=== PATIENT | male | born 1955 | race Caucasian/White ===

== ENCOUNTER → 2022-05-23 10:46 | Outpatient (CLI) | payer MEDICARE, SELFPAY ==
--- NOTE | ~2022-05-23 | US_ITS ---
US right upper quadrant INDICATION: Hepatitis PROCEDURE: Realtime right upper abdominal ultrasound. COMPARISON: No prior studies for comparison. FINDINGS: The pancreas is normal without focal mass or pancreatic ductal dilation. Liver echotexture is increased, consistent with fatty infiltration. There is normal directional flow in the portal ve in. The gallbladder is normal without stones, gallbladder wall thickening or pericholecystic fluid. Comm on bile duct measures 4.9 mm. No sonographic Bolanos's sign. IMPRESSION: 1: Hepatic steatosis. Reviewed, dictated and finalized at location A. IMPRESSION: 1: Hepatic steatosis.
== END ==
PROVIDERS: PCP Internal Medicine; Visit Provider Internal Medicine
DX: K70.10 Alcoholic hepatitis without ascites (principal); K76.0 Fatty (change of) liver, not elsewhere classified
CPT/HCPCS: 76705

== ENCOUNTER → 2022-12-21 10:11 | Outpatient (CLI) | payer MEDICARE, SELFPAY ==
--- NOTE | ~2022-12-21 | US_ITS ---
US right upper quadrant INDICATION: Alcoholic hepatitis PROCEDURE: Realtime right upper abdominal ultrasound. COMPARISON: No prior studies for comparison. FINDINGS: The pancreas is normal without focal mass or pancreatic ductal dilation. Liver echotexture is increased, consistent with fatty infiltration. There is normal directional flow in the portal ve in. The gallbladder is normal without stones, gallbladder wall thickening or pericholecystic fluid. Comm on bile duct measures 3 mm. No sonographic Bolanos's sign. IMPRESSION: 1: Fatty infiltration of the liver. Reviewed, dictated and finalized at location L. ISTS
== END ==
PROVIDERS: PCP Surgery; Visit Provider Internal Medicine
DX: K70.10 Alcoholic hepatitis without ascites (principal); K76.0 Fatty (change of) liver, not elsewhere classified
CPT/HCPCS: 76705

== ENCOUNTER → 2023-06-13 10:10 | Outpatient (CLI) | payer MEDICARE, SELFPAY ==
--- NOTE | ~2023-06-13 | US_ITS ---
EXAMINATION: US right upper quadrant DATE: 06/13/2023 10:25 INDICATION: Alcoholic hepatitis without ascites. TECHNIQUE: Multiple grayscale and Doppler ultrasound images of the abdomen were obtained. COMPARISON: Ultrasound 12/21/2022 FINDINGS: Abdominal aorta is normal in caliber. The visualized portions of the head and body of the p ancreas are normal. There is diffuse hepatic steatosis. No liver surface nodularity. There is normal flow in main portal vein. The gallbladder is normal in size. No gallstones or gallbladder wall thicke ananth. There is no sonographic Bolanos sign. The common duct is normal and measures 4 mm. IMPRESSION: 1. Diffuse hepatic steatosis. Reviewed, dictated and finalized at location A.
== END ==
PROVIDERS: PCP Internal Medicine; Visit Provider Internal Medicine
DX: K70.10 Alcoholic hepatitis without ascites (principal)
CPT/HCPCS: 76705

== ENCOUNTER → 2023-12-03 08:33 | Outpatient (CLI) | payer MEDICARE, SELFPAY ==
--- NOTE | ~2023-12-03 | US_ITS ---
EXAMINATION: US right upper quadrant DATE: 12/03/2023 09:01 INDICATION: Alcoholic hepatitis TECHNIQUE: Multiple grayscale and Doppler ultrasound images of the right upper quadrant were obtained . COMPARISON: 06/13/2023. FINDINGS: The pancreas is is obscured by bowel gas. Diffusely increased echogenicity. No surface nodu larity. Normal hepatopetal flow in the main portal vein. The gallbladder is normal with no abnormal w all thickening, pericholecystic fluid or stones. The common bile duct measures 4 mm. There was no son ographic Bolanos sign. Right kidney length 10.3 cm, no hydronephrosis. IMPRESSION: Pancreas obscured. Echogenic liver, most commonly due to steatosis but also can be seen with hepatitis and fibrosis. Reviewed, dictated and finalized at location K. [employer] IMPRESSION: Pancreas obscured. Echogenic liver, most commonly due to steatosis but also can be seen with hepat itis and fibrosis.
== END ==
PROVIDERS: PCP Internal Medicine; Visit Provider Internal Medicine
DX: K70.10 Alcoholic hepatitis without ascites (principal)
CPT/HCPCS: 76705